=== PATIENT | female | born 1950 | race Caucasian/White ===

== ENCOUNTER 2018-08-06 10:27 | Outpatient (CLI) | payer BC ==
--- NOTE | 2018-08-06 12:18 | MMO ---
BILATERAL SCREENING MAMMOGRAM: Date: 08/06/18 HISTORY: 67-year-old female. Routine screening mammography. COMPARISON: 06/12/14, 09/23/15, 05/30/17. TECHNIQUE: CC and MLO views of both breasts are submitted for interpretation. This patient's mammogram was reviewed with the assistance of computer-aided detection. FINDINGS: The breasts are composed of scattered fibroglandular tissue. Bilaterally, no suspicious dominant mass , architectural distortion, or suspicious calcifications. Bilateral benign-appearing calcifications a re identified. IMPRESSION: BIRADS 2: Benign Finding(s) RECOMMENDATION: Annual mammogram. POS: SURY
== END 2018-08-06 10:28 | disposition home or self-care (01) ==
LOC: SCSMAMMO 10:27
PROVIDERS: ATTEND Family Medicine
DX: Z12.31 Encounter for screening mammogram for malignant neoplasm of breast (principal)
CPT/HCPCS: 77067

== ENCOUNTER 2019-01-07 14:57 | Outpatient (CLI) | payer BC ==
--- NOTE | 2019-01-07 16:21 | BD ---
Exam: DEXA Bone Density History: 68-year-old post-menopausal female for screening. Comparison: None. Lumbar Spine: BMD (g/cm2) L1 0.677 T-Score: -2.8 L2 0.801 T-Score: -2.1 L3 0.753 T-Score: -3.0 L4 0.751 T-Score: -2.8 L1-L4 0.748 T-Score: -2.7 Femoral Neck: 0.711 T-Score: -1.2 Total Femur: 0.774 T-Score: -1.4 Impression: Osteoporosis. This patient has between a 6-7 x increase risk of fracture when compared to young patie nt's with normal mineral density. POS: REYNOLD
== END 2019-01-07 14:58 | disposition home or self-care (01) ==
LOC: BICMAMMO 14:57
PROVIDERS: ATTEND Internal Medicine Rheumatology
DX: M81.0 Age-related osteoporosis without current pathological fracture (principal); M85.859 Other specified disorders of bone density and structure, unspecified thigh
CPT/HCPCS: 77080

== ENCOUNTER 2019-08-08 10:33 | Outpatient (CLI) | payer BC ==
--- NOTE | 2019-08-08 11:09 | MMO ---
Bilateral MAMMO Bilat Screen [facility]. CLINICAL HISTORY: Patient is 68 years old and is seen for screening. The patient has the following family history of breast cancer: maternal grandmother, in her 70's and paternal grandmother, in her 70's. The patient has no personal history of cancer. VIEWS: The views performed were: bilateral craniocaudal with tomosynthesis; bilateral mediolateral oblique with tomosynthesis; and right craniocaudal. FILMS COMPARED: The present examination has been compared to prior imaging studies performed at [facility] on 05/30/2017, and at [facility] on 03/12/2013, 06/12/2014 and 09/23/2015. This study has been interpreted with the assistance of computer-aided detection. MAMMOGRAM FINDINGS: There are scattered fibroglandular densities. There are no suspicious masses, suspicious calcifications, or new areas of architectural distortion. IMPRESSION: THERE IS NO MAMMOGRAPHIC EVIDENCE OF MALIGNANCY. A ROUTINE FOLLOW-UP MAMMOGRAM IN 1 YEAR IS RECOMMENDED. THE RESULTS OF THIS EXAM WERE SENT TO THE PATIENT. ACR BI-RADS Category 1 - Negative MAMMOGRAPHY NOTE: 1. A negative mammogram report should not delay a biopsy if a dominant of clinically suspicious mass is present. 2. Approximately 10% to 15% of breast cancers are not detected by mammography. 3. Adenosis and dense breasts may obscure an underlying neoplasm. Reported by: MELYSSA KUMAR MD Electonically Signed: [id number]
== END 2019-08-08 10:34 | disposition home or self-care (01) ==
LOC: BICMAMMO 10:33
PROVIDERS: ATTEND Family Medicine
DX: Z12.31 Encounter for screening mammogram for malignant neoplasm of breast (principal); Z80.3 Family history of malignant neoplasm of breast
CPT/HCPCS: 77063; 77067

== ENCOUNTER 2021-01-17 11:45 | Outpatient (CLI) | payer BC | END 2021-01-17 11:46 | disposition home or self-care (01) | LOC: BICMAMMO 11:45 | PROVIDERS: ATTEND Family Medicine | DX: Z12.31 Encounter for screening mammogram for malignant neoplasm of breast (principal); Z80.3 Family history of malignant neoplasm of breast | CPT/HCPCS: 77063; 77067 ==

== ENCOUNTER 2021-07-27 14:34 | Outpatient (CLI) | payer BC | END 2021-07-27 14:35 | disposition home or self-care (01) | LOC: BICMAMMO 14:34 | PROVIDERS: ATTEND Internal Medicine Rheumatology | DX: M81.0 Age-related osteoporosis without current pathological fracture (principal); M85.851 Other specified disorders of bone density and structure, right thigh; M85.852 Other specified disorders of bone density and structure, left thigh | CPT/HCPCS: 77080 ==

== ENCOUNTER 2022-01-05 14:38 | Inpatient (IN) | payer BC, MEDICARE ==
[2022-01-05] MEDS ORDERED: Morphine 4 MG/ML VIAL SLOW IVP PRN (17:08)
[2022-01-05] MEDS ORDERED: hydrALAZINE 20 MG/ML VIAL SLOW IVP PRN (17:14)
[2022-01-05] MEDS ORDERED: Lactated Ringer's 1,000 ML IV SCH (17:15)
[2022-01-05] MEDS ORDERED: Clindamycin/D5W 900 MG in Premix Bag 1 BAG IVPB SCH (17:15)
[2022-01-05 17:30] VITALS: BMI 30.7
[2022-01-05] MEDS ORDERED: FLU VACC QS2021-22(65YR UP)/PF 240 MCG/0.7 ML SYRINGE IM ONE (17:45)
[2022-01-05 19:13] LABS: SARS-CoV-2 NAA Rapid Test Not Detected (NotDetected)
[2022-01-05] MEDS ORDERED: Zolpidem Tartrate 5 MG TAB PO SCH ×2 (21:00)
[2022-01-06 05:57] LABS: Hemoglobin 11.9 g/dL (12.0-16.0); Mean Corpuscular HGB CONC 33.3 g/dL (32.0-36.0); Mean Corpuscular Hemoglobin 35.7 pg (27.0-31.0); Mean Platelet Volume 6.3 fL (7.4-10.4); Platelet Count 259 thou/uL (130-400); RBC Distribution Width 12.5 % (11.5-14.5); Red Blood Cell (RBC) Count 3.34 mill/uL (4.20-5.40)
[2022-01-06 06:03] LABS: INR-International Normal Ratio 0.9; Prothrombin Time 12.6 sec (12.0-14.7)
[2022-01-06 06:16] LABS: Anion Gap 14 mmol/L (10-20); BUN (Urea Nitrogen) 14 mg/dL (9.8-20.1); Calc. Creatinine Clearance 54 mL/min (70-130); Calcium 8.7 mg/dL (7.8-10.44); Carbon Dioxide 25 mmol/L (23-31); Chloride 102 mmol/L (98-107); Glucose 103 mg/dL (83-110); Potassium 3.1 mmol/L (3.5-5.1); Sodium 138 mmol/L (136-145)
[2022-01-06 06:19] LABS: #Eosinphils 0.1 thou/uL (0.0-0.7); #Lymphocytes 1.6 thou/uL (1.20-3.40); #Monocytes 0.5 thou/uL (0.11-0.59); #Neutrophils 3.8 thou/uL (1.40-6.50); %Basophils 0.2 % (0.0-1.0); %Eosinophils 1.4 % (0.0-10.0); %Lymphocytes 26.7 % (21.0-51.0); %Monocytes 7.9 % (0.0-10.0); %Neutrophils 63.7 % (42.0-75.0)
[2022-01-06] MEDS ORDERED: Midazolam HCl 2 mg/2 ml Vial ONE (08:00)
[2022-01-06] MEDS ORDERED: EPINEPHrine 1 MG/ML AMP ONE (08:00)
[2022-01-06] MEDS ORDERED: Bupivacaine PF 0.5% 30 ML VIAL ONE (08:00)
[2022-01-06] MEDS ORDERED: Dexamethasone 4 mg/ml Vial ONE (08:01)
[2022-01-06] MEDS ORDERED: Clindamycin/D5W 900 mg/50 ml Premix Bag ONE (08:40)
[2022-01-06] MEDS ORDERED: Fentanyl 250 MCG/5 ML VIAL ONE (08:40)
[2022-01-06] MEDS ORDERED: PROPOFOL 200 MG/20 ML VIAL ONE (08:56)
[2022-01-06] MEDS ORDERED: Lidocaine 1% PF 5 ML VIAL ONE (08:56)
[2022-01-06] MEDS ORDERED: Dexamethasone 20 MG/5 ML VIAL ONE (08:56)
[2022-01-06] MEDS ORDERED: Ondansetron PF 4 MG/2 ML Vial ONE (08:56)
[2022-01-06] MEDS ORDERED: PHENYLEPHRINE-NS 100 MCG/ML 10 ML SYRINGE ONE (08:56)
[2022-01-06] MEDS ORDERED: Promethazine HCl 25 MG/ML VIAL IVPB PRN (09:48)
[2022-01-06] MEDS ORDERED: PACU-Morphine 4MG/ML VIAL SLOW IVP PRN (09:48)
[2022-01-06] MEDS: Acetaminophen/Codeine 30-300mg Tablet PO PRN (19:56)
[2022-01-06] MEDS: Zolpidem Tartrate 5 MG TAB PO SCH (21:25)
[2022-01-07] MEDS: Acetaminophen/Codeine 30-300mg Tablet PO PRN ×2 (05:29→13:42)
[2022-01-07] MEDS: Enoxaparin Sodium 40 MG/0.4 ML SYRINGE SC SCH (09:35)
[2022-01-07] MEDS: Rosuvastatin 10 MG TAB PO SCH (09:35)
[2022-01-07] MEDS: Zolpidem Tartrate 5 MG TAB PO SCH (20:35)
[2022-01-08] MEDS: Enoxaparin Sodium 40 MG/0.4 ML SYRINGE SC SCH (09:02)
[2022-01-08] MEDS: Rosuvastatin 10 MG TAB PO SCH (09:02)
[2022-01-08 15:25] VITALS: BP 154/88; TEMP 98
[2022-01-08] MEDS ORDERED: Aspirin 81 mg Enteric Coated Tablet PO SCH (21:00)
[2022-01-13] MEDS ORDERED: RISEDRONATE SODIUM 35 MG PO SCH (09:00)
== END 2022-01-08 16:06 | disposition home or self-care (01) | DRG 494 ==
LOC: SJJU 14:38
PROVIDERS: ADMIT Orthopaedic Surgery; ATTEND Orthopaedic Surgery
PROC: 0QSJ04Z Reposition Right Fibula with Internal Fixation Device, Open Approach (ICD-10-PCS; principal; 2022-01-06)
DX: S82.851A Displaced trimalleolar fracture of right lower leg, initial encounter for closed fracture (principal); W18.30XA Fall on same level, unspecified, initial encounter; Z20.822 Contact with and (suspected) exposure to COVID-19; M85.80 Other specified disorders of bone density and structure, unspecified site; G47.00 Insomnia, unspecified; E78.5 Hyperlipidemia, unspecified; I10 Essential (primary) hypertension; Z90.710 Acquired absence of both cervix and uterus; Y92.009 Unspecified place in unspecified non-institutional (private) residence as the place of occurrence of the external cause; Z90.722 Acquired absence of ovaries, bilateral; Z87.891 Personal history of nicotine dependence; Z79.899 Other long term (current) drug therapy; Z88.0 Allergy status to penicillin
CPT/HCPCS: 36415; 76000; 80048; 85025; 85610; 93005; 93010; C1713; J0171; J1100; J1650; J2250; J2405; J2704; J3010; J3490; J7120; S0020; U0002

== ENCOUNTER 2022-12-26 14:38 | Outpatient (CLI) | payer BC | END 2022-12-26 14:39 | disposition home or self-care (01) | LOC: BICMAMMO 14:38 | PROVIDERS: ATTEND Internal Medicine Rheumatology | DX: Z12.31 Encounter for screening mammogram for malignant neoplasm of breast (principal); M81.0 Age-related osteoporosis without current pathological fracture; M17.0 Bilateral primary osteoarthritis of knee; M85.851 Other specified disorders of bone density and structure, right thigh; Z80.3 Family history of malignant neoplasm of breast | CPT/HCPCS: 77063; 77067; 77080 ==

== ENCOUNTER 2025-06-29 14:10 | Outpatient (CLI) | payer BC | END 2025-06-29 14:11 | disposition home or self-care (01) | LOC: BICRAD 14:10 | PROVIDERS: ATTEND Internal Medicine Rheumatology | DX: M17.0 Bilateral primary osteoarthritis of knee (principal) | CPT/HCPCS: 73565 ==